=== PATIENT | male | born 1975 | race Caucasian/White ===

== ENCOUNTER 2017-07-31 20:02 | Emergency (ER) | payer OTHER ==
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
[2017-07-31] MEDS ORDERED: METHOCARBAMOL 500 MG TABLET PO STA (22:25)
[2017-07-31] MEDS ORDERED: HYDROcod/ACETAM 5/325 MG TABLET PO STA (22:25)
[2017-07-31] MEDS ORDERED: IBUPROFEN 600 MG TABLET PO STA (22:25)
--- NOTE | 2017-07-31 23:00 | XRAY Preliminary Report ---
Exam: XR CHEST 2 VIEW X-RAY IMPRESSION: 1. No acute abnormality seen in the chest. 2. Upper thoracic levoscoliosis. [facility] SITE ID: [id number]
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
[2017-08-01 00:18] VITALS: BP 141/98
== END 2017-08-01 00:17 | disposition home or self-care (01) ==
LOC: ED 20:02
DX: S20.219A Contusion of unspecified front wall of thorax, initial encounter (principal); V43.52XA Car driver injured in collision with other type car in traffic accident, initial encounter; S29.9XXA Unspecified injury of thorax, initial encounter
CPT/HCPCS: 71046; 72125; 99283; 99284; A9270

== ENCOUNTER 2017-08-21 19:57 | Emergency (ER) | payer OTHER ==
[2017-08-21 20:10] VITALS: BP 137/86
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
[2017-08-21] MEDS ORDERED: HYDROcod/ACET 5/325 Prepack 4 PO STA (20:55)
[2017-08-21] MEDS ORDERED: CYCLOBENZAPRINE 10 MG Prepack 2 PO PRN (20:55)
== END 2017-08-21 21:13 | disposition home or self-care (01) ==
LOC: ED 19:57
DX: S16.1XXA Strain of muscle, fascia and tendon at neck level, initial encounter (principal); M54.9 Dorsalgia, unspecified; V89.2XXA Person injured in unspecified motor-vehicle accident, traffic, initial encounter; Z79.1 Long term (current) use of non-steroidal anti-inflammatories (NSAID); Z79.891 Long term (current) use of opiate analgesic
CPT/HCPCS: 99283

== ENCOUNTER 2018-04-25 22:53 | Emergency (ER) | payer SELFPAY ==
--- NOTE | 2018-04-25 23:43 | ED Physician Documentation ---
PD HPI DYSPNEA - Stated complaint Stated Complaint: SHORTNESS OF BREATH - Chief complaint Chief Complaint: Resp - History obtained from History obtained from: Patient - History of Present Illness Timing - onset: How many days ago (4-5 days) Timing - duration: Weeks Improved by: Inhaler/neb, Rest Worsened by: Exertion, Laying flat, Coughing Associated symptoms: Cough, Wheezing Recently seen: Not recently seen Review of Systems Constitutional: reports: Chills, Sweats Ears: denies: Ear pain Nose: reports: Congestion, Sinus pressure / pain Throat: denies: Sore throat Cardiac: denies: Chest pain / pressure Respiratory: reports: Dyspnea, Cough, Wheezing PD PAST MEDICAL HISTORY - Past Medical History Cardiovascular: None Respiratory: None, Cystic fibrosis - Past Surgical History Past Surgical History: Yes Ortho: Other - Present Medications Home Medications: Ambulatory Orders Medication Instructions Recorded Confirmed Methocarbamol [Robaxin] 500 mg PO Q6H PRN #25 tablet 08/01/17 Naproxen [Naprosyn] 500 mg PO BID #20 tablet 08/01/17 Tramadol HCl 50 mg PO Q6H PRN #20 tablet 08/01/17 Hydrocodone/Acetaminophen 1 - 2 each PO Q6HR PRN #14 tablet 08/21/17 [Hydrocodon-Acetaminophen 5-325] diazePAM [Valium] 5 - 10 mg PO TID PRN #15 tablet 08/21/17 Albuterol Sulf [Ventolin Hfa 1 - 2 puffs INH Q4HR PRN #1 inhaler 04/26/18 Inhaler] Azithromycin [Zithromax] 250 mg PO DAILY #4 tablet 04/26/18 Fluticasone/Vilanterol [Breo 1 each IH DAILY #1 blst.w.dev 04/26/18 Ellipta 200-25 Mcg INH] predniSONE [Deltasone] 10 mg PO [id number] #42 tab 04/26/18 - Allergies Allergies/Adverse Reactions: Allergies Allergy/AdvReac Type Severity Reaction Status Date / Time No Known Drug Allergies Allergy Verified 04/25/18 23:04 - Social History Does the pt smoke?: No Smoking Status: Never smoker Does the pt drink ETOH?: No Does the pt have substance abuse?: No - Immunizations Immunizations are current?: Yes - POLST Patient has POLST: No PD ED PE NORMAL - Vitals Vital signs reviewed: Yes - General General: Alert and oriented X 3, No acute distress, Well developed/nourished - Cardiac Cardiac: RRR, No murmur - Respiratory Respiratory: No respiratory distress - Extremities Extremities: No edema PD ED PE EXPANDED - Respiratory Respiratory: Wheezing Results - Vitals Vitals: Vital Signs - 24 hr 04/25/18 04/26/18 04/26/18 23:00 00:34 00:42 Temperature 36.8 C 36.5 C Heart Rate 75 70 70 Respiratory 18 16 18 Rate Blood Pressure 143/95 H 135/95 H O2 Saturation 98 100 Oxygen O2 Source Room air PD MEDICAL DECISION MAKING - ED course Complexity details: reviewed old records, re-evaluated patient, considered differential, d/w patient Departure - Departure Disposition: 01 Home, Self Care Clinical Impression: Bronchitis, Asthma, Sinusitis Condition: Good Instructions: ED Upper Resp Infec Abx Tx, ED Sinusitis Abx Tx Prescriptions: Albuterol Sulf [Ventolin Hfa Inhaler] 1 - 2 puffs INH Q4HR PRN #1 inhaler PRN Reason: Shortness Of Air/Wheezing Azithromycin [Zithromax] 250 mg PO DAILY #4 tablet Fluticasone/Vilanterol [Breo Ellipta 200-25 Mcg INH] 1 each IH DAILY #1 blst.w.dev predniSONE [Deltasone] 10 mg PO [id number] #42 tab Discharge Date/Time: 04/26/18 00:42
[2018-04-25] MEDS ORDERED: LORazepam 2 MG/ML VIAL IVP STA (23:53)
[2018-04-26] MEDS ORDERED: DEXAMETHASONE 10 MG/ML VIAL PO STA (00:14)
[2018-04-26] MEDS ORDERED: AZITHROMYCIN 250 MG TABLET PO STA (00:14)
[2018-04-26] MEDS ORDERED: IPRATROPIUM/ALBUTEROL 3 ML NEB INH STA (00:14)
[2018-04-26 00:43] VITALS: BP 135/95
== END 2018-04-26 00:42 | disposition home or self-care (01) ==
LOC: ED 22:53
DX: J45.909 Unspecified asthma, uncomplicated (principal); J32.9 Chronic sinusitis, unspecified
CPT/HCPCS: 94640; 99283; A9270

== ENCOUNTER 2021-03-01 16:12 | Emergency (ER) | payer OTHER ==
[2021-03-01 16:35] VITALS: BP 140/82
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
[2021-03-01] MEDS ORDERED: IBUPROFEN 800 MG TABLET PO STA (17:32)
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
== END 2021-03-01 18:23 | disposition home or self-care (01) ==
LOC: ED 16:12
DX: S16.1XXA Strain of muscle, fascia and tendon at neck level, initial encounter (principal); S40.012A Contusion of left shoulder, initial encounter; M41.9 Scoliosis, unspecified; V89.2XXA Person injured in unspecified motor-vehicle accident, traffic, initial encounter; Y93.89 Activity, other specified
CPT/HCPCS: 72125; 99283; 99284; A9270